=== PATIENT | female | born 1970 | race Caucasian/White ===

== ENCOUNTER 2016-06-20 16:35 | Inpatient (IN) | payer BC ==
[~2016-06-20] VITALS: Ht 165.1 cm; Wt 81.2 kg
[2016-06-22] MEDS ORDERED: NITROSTAT0.4 MG SL ×2 (09:15→09:18)
[2016-06-22] MEDS ORDERED: PROZAC20 MG PO (09:19)
[2016-06-22] MEDS ORDERED: PRINIVIL20 MG PO (09:19)
[2016-06-22] MEDS ORDERED: HALFPRIN81 MG PO (09:19)
[2016-06-22] MEDS ORDERED: SYNTHROID75 MCG PO (09:20)
[2016-06-22] MEDS ORDERED: HYDROCHLOROTHIA25 MG PO (09:20)
[2016-06-22] MEDS ORDERED: PROTONIX20 MG PO (09:20)
== END 2016-06-22 10:05 | disposition short-term general hospital (02) | DRG 305 ==
LOC: ER 16:35 → OBS 19:05 → IP 19:05 → ER 19:05 → IP 06-21 07:45
PROVIDERS: ADMIT Family Medicine
DX: I16.1 Hypertensive emergency (principal); E03.9 Hypothyroidism, unspecified; K21.9 Gastro-esophageal reflux disease without esophagitis; F32.9 Major depressive disorder, single episode, unspecified; F41.9 Anxiety disorder, unspecified; K58.9 Irritable bowel syndrome, unspecified
CPT/HCPCS: A9150; G0378; J1650; J2060; J2270; J3490; J8499

== ENCOUNTER 2016-06-22 19:08 | Emergency (ER) | payer BC ==
[~2016-06-22 19:08] MED LIST: HALFPRIN81 MG PO; HYDROCHLOROTHIA25 MG PO; NITROSTAT0.4 MG SL; PRINIVIL20 MG PO; PROTONIX20 MG PO; PROZAC20 MG PO; SYNTHROID75 MCG PO
== END 2016-06-22 21:45 | disposition short-term general hospital (02) ==
LOC: ER 19:08
DX: R07.89 Other chest pain (principal); I10 Essential (primary) hypertension; K21.9 Gastro-esophageal reflux disease without esophagitis; F41.9 Anxiety disorder, unspecified; E03.9 Hypothyroidism, unspecified; Z90.49 Acquired absence of other specified parts of digestive tract; Z90.710 Acquired absence of both cervix and uterus; Z79.82 Long term (current) use of aspirin; Z79.899 Other long term (current) drug therapy
CPT/HCPCS: J1170; J2060

== ENCOUNTER 2016-06-26 18:45 | Emergency (ER) | payer BC ==
[~2016-06-26] VITALS: Ht 167.6 cm; Wt 81.6 kg
[2016-06-26] MEDS ORDERED: AMLODIPINE BESYL5 MG PO (19:42)
[2016-06-26] MEDS ORDERED: IMDUR30 MG PO (19:44)
[2016-06-26] MEDS ORDERED: MULTIVITAMINS1 EAC1 PO (19:45)
== END 2016-06-26 22:19 | disposition short-term general hospital (02) ==
LOC: ER 18:45
DX: G43.909 Migraine, unspecified, not intractable, without status migrainosus (principal); I10 Essential (primary) hypertension; F41.9 Anxiety disorder, unspecified; F32.9 Major depressive disorder, single episode, unspecified; Z79.82 Long term (current) use of aspirin; Z79.899 Other long term (current) drug therapy
CPT/HCPCS: J1885; J2405

== ENCOUNTER → 2016-07-07 | Outpatient (CLI) | payer BC ==
[~2016-07-07] MED LIST changes: +AMLODIPINE BESYL5 MG PO; +IMDUR30 MG PO; +MULTIVITAMINS1 EAC1 PO
== END | disposition short-term general hospital (02) ==
LOC: CLCARD 09:07
DX: I10 Essential (primary) hypertension (principal); K21.9 Gastro-esophageal reflux disease without esophagitis